=== PATIENT | male | born 1980 | race Caucasian/White ===

== ENCOUNTER 2023-05-23 08:45 | Emergency (ER) | payer OTHER ==
[2023-05-23] MEDS: Tetracaine HCl/PF 0.5% 4 ML Bottle EYELF ONE (09:00)
== END 2023-05-23 09:16 | disposition home or self-care (01) ==
LOC: LB.ED 08:45
DX: H10.32 Unspecified acute conjunctivitis, left eye (principal); F17.210 Nicotine dependence, cigarettes, uncomplicated
CPT/HCPCS: 99282; 99283